=== PATIENT | female | born 1975 | race Caucasian/White ===

== ENCOUNTER 2017-06-17 13:05 | Emergency (ER) | payer MEDICARE, MEDICAID ==
[~2017-06-17] VITALS: Ht 157.5 cm; Wt 50.0 kg
[~2017-06-17 13:05] MED LIST: IBUP800T23 PO; ORPH100T PO; TRAM50 PO
[2017-06-17 13:10] VITALS: BP 124/60; PULSE 73; RESP 20; O2SAT 100
[2017-06-17] MEDS ORDERED: SODIUM CHLOR 0.9% 1000 ML INJ 1,000 ML IV ONE (13:15)
[2017-06-17] MEDS ORDERED: SODIUM CHLORIDE 0.9% FLUSH 10 ML FLUSH IVF PRN (13:15)
[2017-06-17 13:20] VITALS: TEMP 98.6; O2SAT 98
--- NOTE | 2017-06-17 13:20 | PD ---
HPI Chief Complaint: near syncope Time Seen by Provider: 13:16 Travel History International Travel<30 days: No Contact w/Intl Traveler<30days: No History of Present Illness HPI 42-year-old female with PMH of RA presents to the ED via EMS for evaluation of near syncopal episode. The patient states that she's been walking a lot today and hasn't had anything to eat or drink. She endorses smoking marijuana this morning. Per EMS the patient patient [place] On presentation the patient is a and O 4. She states that she feels weak. She states that she's had a bitemporal headache for the last 3 days. No treatment attempted at home. She denies vision changes. She denies palpitations, shortness of breath, abdominal pain. She endorses one episode of vomiting yesterday. Denies nausea on presentation. PFSH Past Surgical History Hysterectomy: Yes Social History Tobacco Use: Yes Allergies-Medications (Allergen,Severity, Reaction): Coded Allergies: No Known Allergies (Unverified , 02/09/16) Reported Meds & Prescriptions Reported Meds & Active Scripts Active Ultram (Tramadol HCl) 50 Mg Tab 50 Mg PO Q6H PRN FOR PAIN Norflex (Orphenadrine Citrate) 100 Mg Isidoro 100 Mg PO BID Ibuprofen 800 Mg Tab 800 Mg PO TID Review of Systems Except as stated in HPI: all other systems reviewed are Neg Physical Exam Narrative GENERAL: Well-nourished, well-developed petite female in no acute distress. SKIN: Focused skin assessment warm/dry. Deeply tanned. HEAD: Normocephalic. EYES: No scleral icterus. No injection or drainage. PERRLA. EOMI. NECK: Supple, trachea midline. No JVD or lymphadenopathy. CARDIOVASCULAR: Regular rate and rhythm without murmurs, gallops, or rubs. RESPIRATORY: Breath sounds clear and equal bilaterally. No accessory muscle use. GASTROINTESTINAL: Abdomen soft, non-tender, nondistended. Active bowel sounds. MUSCULOSKELETAL: No cyanosis, or edema. NEUROLOGICAL: Awake and alert. Cranial nerves II through XII intact. Motor and sensory grossly within normal limits. 5/5 muscle strength in all muscle groups. Normal speech. BACK: Nontender without obvious deformity. No CVA tenderness. Data Data Last Documented VS Vital Signs Date Time Temp Pulse Resp B/P Pulse Ox O2 Delivery O2 Flow Rate FiO2 06/17/17 13:20 98.6 98 06/17/17 13:10 73 20 124/60 Orders Electrocardiogram (06/17/17 13:15) Complete Blood Count With Diff (06/17/17 13:15) Comprehensive Metabolic Panel (06/17/17 13:15) Magnesium (Mg) (06/17/17 13:15) Ckmb (Isoenzyme) Profile (06/17/17 13:15) Troponin I (06/17/17 13:15) Act Partial Throm Time (Ptt) (06/17/17 13:15) Prothrombin Time / Inr (Pt) (06/17/17 13:15) Urinalysis - C+S If Indicated (06/17/17 13:15) Chest, Single Ap (06/17/17 13:15) Ct Brain W/O Iv Contrast(Rout) (06/17/17 13:15) Ecg Monitoring (06/17/17 13:15) Iv Access Insert/Monitor (06/17/17 13:15) Oximetry (06/17/17 13:15) Sodium Chloride 0.9% Flush (Ns Flush) (06/17/17 13:15) Sodium Chlor 0.9% 1000 Ml Inj (Ns 1000 M (06/17/17 13:15) Sodium Chlorid 0.9% 500 Ml Inj (Ns 500 M (06/17/17 14:30) Diet Regular Basic (06/17/17 Lunch) Urine Culture (06/17/17 15:15) Labs Laboratory Tests Test 06/17/17 06/17/17 13:20 15:15 White Blood Count 3.4 TH/MM3 Red Blood Count 4.99 MIL/MM3 Hemoglobin 15.2 GM/DL Hematocrit 44.3 % Mean Corpuscular Volume 88.8 FL Mean Corpuscular Hemoglobin 30.5 PG Mean Corpuscular Hemoglobin 34.3 % Concent Red Cell Distribution Width 13.0 % Platelet Count 144 TH/MM3 Mean Platelet Volume 9.2 FL Neutrophils (%) (Auto) 57.5 % Lymphocytes (%) (Auto) 30.6 % Monocytes (%) (Auto) 10.7 % Eosinophils (%) (Auto) 0.9 % Basophils (%) (Auto) 0.3 % Neutrophils # (Auto) 2.0 TH/MM3 Lymphocytes # (Auto) 1.0 TH/MM3 Monocytes # (Auto) 0.4 TH/MM3 Eosinophils # (Auto) 0.0 TH/MM3 Basophils # (Auto) 0.0 TH/MM3 CBC Comment DIFF FINAL Differential Comment Prothrombin Time 11.3 SEC Prothromb Time International 1.0 RATIO Ratio Activated Partial 24.9 SEC Thromboplast Time Sodium Level 139 MEQ/L Potassium Level 3.9 MEQ/L Chloride Level 106 MEQ/L Carbon Dioxide Level 25.0 MEQ/L Anion Gap 8 MEQ/L Blood Urea Nitrogen 25 MG/DL Creatinine 1.12 MG/DL Estimat Glomerular Filtration 54 ML/MIN Rate Random Glucose 83 MG/DL Calcium Level 9.1 MG/DL Magnesium Level 2.0 MG/DL Total Bilirubin 1.0 MG/DL Aspartate Amino Transf 29 U/L (AST/SGOT) Alanine Aminotransferase 30 U/L (ALT/SGPT) Alkaline Phosphatase 55 U/L Total Creatine Kinase 77 U/L Troponin I LESS THAN 0.02 NG/ML Total Protein 8.8 GM/DL Albumin 4.1 GM/DL Urine Color YELLOW Urine Turbidity CLEAR Urine pH 6.5 Urine Specific [place] 1.015 Urine Protein TRACE mg/dL Urine Glucose (UA) NEG mg/dL Urine Ketones 10 mg/dL Urine Occult Blood NEG Urine Nitrite NEG Urine Bilirubin NEG Urine Urobilinogen LESS THAN 2.0 MG/DL Urine Leukocyte Esterase LARGE Urine RBC 3 /hpf Urine WBC 11 /hpf Urine Squamous Epithelial 1 /hpf Cells Urine Hyaline Casts 3 /lpf Urine Mucus FEW /lpf Microscopic Urinalysis Comment CULTURE INDICATED MDM Medical Decision Making Medical Screen Exam Complete: Yes Emergency Medical Condition: Yes Differential Diagnosis dehydration versus metabolic derangement versus UTI versus pneumonia versus less likely ACS versus less likely ICH versus other Narrative Course 42-year-old female with PMH of RA presents to the ED via EMS for evaluation of near syncopal episode. The patient states that she's been walking a lot today and hasn't had anything to eat or drink. She endorses smoking marijuana this morning. Per EMS the patient patient [place] down in the supermarket. On presentation the patient is a and O 4. She states that she feels weak. She states that she's had a bitemporal headache for the last 3 days. No treatment attempted at home. She denies vision changes. She denies palpitations, shortness of breath, abdominal pain. She endorses one episode of vomiting yesterday. Denies nausea on presentation. Vitals reviewed. On physical exam the patient is well-appearing. No focal neural deficits. No appreciable M/R/ G. No abdominal tenderness. No CVA tenderness. No lower extremity edema. Patient was administered 1.5 L normal saline. EKG rate 74, sinus rhythm. Normal intervals. Normal axis. No ST changes. Reviewed by Dr. Luciano. Cardiac enzymes negative 1. CXR without acute cardiopulmonary process. Head CT normal per radiology read. CBC unremarkable. CMP with evidence of mild dehydration. UA pending. Patient denies urinary symptoms. The patient was provided lunch and on recheck states that she is feeling much better. This is dehydration. Patient's instructed to return to normal, gentle activities as tolerated, rest, hydrate, follow up with the primary care. She is stable and discharged home. Diagnosis Primary Impression: Dehydration Referrals: Primary Care Physician Patient Instructions: Dehydration (ED), General Instructions Additional Instructions: Rest, hydrate. Return to normal, gentle activities as tolerated. Follow-up with primary care provider. Return to the ED for any urgent or emergent medical condition. Disposition: 01 DISCHARGE HOME Condition: Stable Isela De Oliveira Jun 17, 2017 13:20
--- NOTE | 2017-06-17 13:42 | RADRPT ---
EXAM DATE/TIME: 06/17/2017 13:13 [facility] COMPARISON: No previous studies available for comparison. INDICATIONS : Syncope MEDICAL HISTORY : None. SURGICAL HISTORY : Hysterectomy. Appendectomy. ENCOUNTER: Initial ACUITY: 1 day PAIN SCORE: 0/10 LOCATION: Bilateral chest FINDINGS: A single view of the chest demonstrates the lungs to be symmetrically hyper aerated without evidence of mass, infiltrate or effusion. Small granuloma is noted in the left midlung. The cardiomediastinal contours are unremarkable. Osseous structures are intact. CONCLUSION: No acute disease. Wojciech Amanda MD on June 17, 2017 at 13:39 Board Certified Radiologist. This report was verified electronically.
[2017-06-17 13:53] LABS: BASOPHIL % 0.3 % (0.0-2.0); EOSINOPHIL % 0.9 % (0.0-4.0); HEMATOCRIT 44.3 % (35.0-46.0); HEMO FLAGS DIFF FINAL; LYMPH % 30.6 % (9.0-44.0); MEAN CELL VOLUME 88.8 FL (80.0-100.0); MEAN CORPUSCULAR HEMOGLOBIN 30.5 PG (27.0-34.0); MEAN CORPUSCULAR HGB CONC 34.3 % (32.0-36.0); MONO % 10.7 % (0.0-8.0); NEUT % 57.5 % (16.0-70.0); PLATELET COUNT 144 TH/MM3 (150-450); RED BLOOD COUNT 4.99 MIL/MM3 (4.00-5.30); WHITE BLOOD COUNT 3.4 TH/MM3 (4.0-11.0)
[2017-06-17 14:03] LABS: APTT (PATIENT) 24.9 SEC (24.3-30.1); PROTHROMBIN TIME - PATIENT 11.3 SEC (9.8-11.6)
[2017-06-17 14:06] LABS: ALT (GPT) 30 U/L (10-53); ANION GAP 8 MEQ/L (5-15); AST (GOT) 29 U/L (15-37); BLOOD UREA NITROGEN 25 MG/DL (7-18); CHLORIDE 106 MEQ/L (98-107); GLOMERULAR FILTRATION RATE 54 ML/MIN (>89); POTASSIUM 3.9 MEQ/L (3.5-5.1); SODIUM (NA) 139 MEQ/L (136-145)
[2017-06-17 14:10] LABS: ALKALINE PHOSPHATASE 55 U/L (45-117)
[2017-06-17 14:12] LABS: CREATINE KINASE 77 U/L (26-192)
--- NOTE | 2017-06-17 14:23 | RADRPT ---
EXAM DATE/TIME: 06/17/2017 14:11 [facility] COMPARISON: No previous studies available for comparison. INDICATIONS : Syncopal episode. RADIATION DOSE: 56.35 CTDIvol (mGy) MEDICAL HISTORY : None SURGICAL HISTORY : Hysterectomy. ENCOUNTER: Initial ACUITY: 1 day PAIN SCALE: 0/10 LOCATION: cranial TECHNIQUE: Multiple contiguous axial images were obtained of the head. Using automated exposure control and adj ustment of the mA and/or kV according to patient size, radiation dose was kept as low as reasonably a chievable to obtain optimal diagnostic quality images. DICOM format image data is available electro nically for review and comparison. FINDINGS: CEREBRUM: The ventricles are normal for age. No evidence of midline shift, mass lesion, hemorrhage or acute in farction. No extra-axial fluid collections are seen. POSTERIOR FOSSA: The cerebellum and brainstem are intact. The 4th ventricle is midline. The cerebellopontine angle i s unremarkable. EXTRACRANIAL: The visualized portion of the orbits is intact. SKULL: The calvaria is intact. No evidence of skull fracture. CONCLUSION: Normal examination. Wojciech Amanda MD on June 17, 2017 at 14:21 Board Certified Radiologist. This report was verified electronically.
[2017-06-17] MEDS ORDERED: SODIUM CHLORID 0.9% 500 ML INJ 500 ML IV ONE (14:30)
[2017-06-17 15:50] LABS: BLOOD, URINE NEG (NEG); COMMENT (UR) CULTURE INDICATED; CULTURE IF INDICATED CULTURE INDICATED; GLUCOSE,URINE NEG (NEG); HYALINE CAST, URINE 3 /lpf (RARE); KETONE, URINE 10 mg/dL (NEG); MUCUS URINE FEW /lpf (OCC); NITRITE,URINE NEG (NEG); PH, URINE 6.5 (5.0-8.5); SQUAMOUS EPITHELIAL CELL URINE 1 /hpf (0-5); URINE COLOR YELLOW (YELLW/STRAW)
--- NOTE | 2017-06-18 12:21 | EKG ---
Date Performed: 06/17/2017 Time Performed: 13:19:03 PTAGE: 42 years EKG: Sinus rhythm NORMAL ECG NO PREVIOUS TRACING DOCTOR: Anibal Morgan Interpretating Date/Time 06/18/2017 12:18:15
== END 2017-06-17 16:16 | disposition home or self-care (01) ==
LOC: NEPC 13:05
DX: E86.0 Dehydration (principal); R55 Syncope and collapse; M06.9 Rheumatoid arthritis, unspecified; R53.1 Weakness; R11.10 Vomiting, unspecified; R51 Headache; A49.8 Other bacterial infections of unspecified site; Z79.899 Other long term (current) drug therapy
CPT/HCPCS: 70450; 71010; 80053; 81001; 82550; 83735; 84484; 85025; 85610; 85730; 87086; 93005; 96360; 96361; 99285; J7030; J7040